=== PATIENT | female | born 1980 | race Caucasian/White ===

== ENCOUNTER → 2019-08-02 | Outpatient (CLI) | payer OTHER ==
--- NOTE | 2019-08-02 15:39 | REP ---
CHEST X RAY TWO VIEWS. HISTORY: Dilated cardiomyopathy. No comparison chest x-ray. FINDINGS: The lungs are symmetrically aerated and clear. The pleural angles are sharp. Pulmonary vasculature is not increased. The heart is felt to be mildly enlarged. Cardiothoracic ratio measures 52.2%. No bony abnormality is seen. No infiltrate is seen. IMPRESSION: Mild cardiomegaly. Otherwise no acute disease. Electronically Signed by Higinio Bernstein MD 08/02/2019 05:43 P
--- NOTE | 2019-08-02 15:49 | REP ---
REASON: Pain after trauma. There is no definite plain radiographic evidence of an acute fracture, however, subtle coccygeal fractures cannot be excluded by plain radiography. If clinically relevant consider CT. Electronically Signed by Jim Augustine DO 08/02/2019 04:00 P
[2019-08-02 16:13] LABS: BASO % 0.2 % (0.0-1.0); EOS # 0.2 10^3/uL (0.0-0.5); EOS % 1.9 % (0.0-3.0); HEMATOCRIT 40.4 % (36.0-47.0); HEMOGLOBIN 12.9 g/dl (12.0-15.5); LYMPH # 2.4 10^3/uL (1.5-5.0); LYMPH % 27.8 % (24.0-44.0); MEAN CORPUSCULAR HEMOGLOBIN 28.2 pg (27.0-33.0); MEAN CORPUSCULAR HGB CONC 31.9 g/dl (32.0-36.5); MEAN CORPUSCULAR VOLUME 88.4 fl (80.0-96.0); MONO # 0.4 10^3/uL (0.0-0.8); MONO % 4.1 % (0.0-5.0); NEUTROPHILS # 5.7 10^3/uL (1.5-8.5); NEUTROPHILS % 65.7 % (36.0-66.0); PLATELET COUNT, AUTOMATED 334 10^3/uL (150-450); RED BLOOD COUNT 4.57 10^6/uL (4.00-5.40); WHITE BLOOD COUNT 8.6 10^3/uL (4.0-10.0)
[2019-08-02 16:14] LABS: APPEARANCE, URINE HAZY (CLEAR); BACTERIA, URINE AUTO NEGATIVE (NEGATIVE); BILIRUBIN, URINE AUTO NEGATIVE (NEGATIVE); BLOOD, URINE BLOOD 2+ (NEGATIVE); COLOR, URINE YELLOW (YELLOW); GLUCOSE, URINE (UA) AUTO 1+ mg/dL (NEGATIVE); KETONE, URINE AUTO NEGATIVE (NEGATIVE); LEUKOCYTE ESTERASE, URINE AUTO NEGATIVE (NEGATIVE); MUCUS, URINE SMALL (NEGATIVE); NITRITE, URINE AUTO NEGATIVE (NEGATIVE); PROTEIN, URINE AUTO 2+ mg/dL (NEGATIVE); RBC, URINE AUTO 7 /HPF (0-3); SPECIFIC GRAVITY URINE AUTO 1.023 (1.002-1.035); SQUAMOUS EPITHELIAL CELL UR AU 3 /HPF (0-6); UROBILINOGEN, URINE AUTO 0.2 mg/dL (0.0-2.0); WBC, URINE AUTO 12 /HPF (0-3)
[2019-08-02 16:30] LABS: HEMOGLOBIN A1c 9.1 %
[2019-08-02 16:47] LABS: ALBUMIN 3.3 GM/DL (3.2-5.2); ALT/SGPT 67 U/L (12-78); BILIRUBIN,TOTAL 0.4 MG/DL (0.2-1.0); BLOOD UREA NITROGEN 9 MG/DL (7-18); CALCIUM LEVEL 8.8 MG/DL (8.5-10.1); CARBON DIOXIDE LEVEL 26 MEQ/L (21-32); CHLORIDE LEVEL 104 MEQ/L (98-107); CHOLESTEROL LEVEL 219 MG/DL (<200); CHOLESTEROL RISK RATIO 7.064 (<5); CPK CREATINE PHOSPHOKINASE 71 U/L (26-192); CREATININE FOR GFR 0.49 MG/DL (0.55-1.30); FREE T4 1.29 NG/DL (0.76-1.46); GLOMERULAR FILTRATION RATE > 60.0 (>60); GLUCOSE, FASTING 176 MG/DL (70-100); HDL CHOLESTEROL 31 MG/DL (>40); NON-HDL-C 188 MG/DL; NT-PRO BNP 74 PG/ML (<125); POTASSIUM SERUM 4.2 MEQ/L (3.5-5.1); SODIUM LEVEL 137 MEQ/L (136-145); TOTAL PROTEIN 7.9 GM/DL (6.4-8.2); TRIGLYCERIDES LEVEL 434 MG/DL (<150)
== END ==
LOC: M LRY 13:34
PROVIDERS: ATTEND Internal Medicine
DX: I42.0 Dilated cardiomyopathy (principal)

== ENCOUNTER → 2019-08-15 | Outpatient (CLI) | payer OTHER ==
--- NOTE | 2019-08-15 17:38 | REP ---
CT study of the sacrum and coccyx without contrast: History: Pain after fall. Injury to the sacrum and coccyx region. Muscle strain. Comparison radiographs August 02, 2019. Technique: Helical scanning is acquired. 4 mm axial images are generated. Coronal and sagittal MPR images are generated and reviewed. CT findings: The sacrum appears intact on sagittal, axial and coronal images. No sacral fracture is seen. L5 vertebral body appears intact. SI joints are normally aligned. The visualized portions of the iliac bones appear intact. There is however evidence of a subtle nondisplaced fracture of the first coccygeal segment with slight associated swelling. The second and third coccygeal segments appear to be intact although they may be displaced slightly posteriorly. There is no other evidence of fracture. No uterine or ovarian abnormality is seen. Urinary bladder appears intact. Impression: Subtle nondisplaced fracture of the first coccygeal segment with slight soft tissue swelling. No sacral fracture seen. Electronically Signed by Higinio Bernstein MD 08/15/2019 07:16 P
== END ==
LOC: M RAD 14:18
PROVIDERS: ATTEND Internal Medicine
DX: M54.5 Low back pain (principal); Z91.81 History of falling

== ENCOUNTER 2019-09-02 17:49 | Emergency (ER) | payer OTHER ==
[~2019-09-02] VITALS: Ht 175.3 cm; Wt 118.2 kg
[2019-09-02 19:23] LABS: BASO % 0.3 % (0.0-1.0); EOS # 0.2 10^3/uL (0.0-0.5); EOS % 1.8 % (0.0-3.0); HEMATOCRIT 40.9 % (36.0-47.0); HEMOGLOBIN 13.5 g/dl (12.0-15.5); LYMPH # 2.8 10^3/uL (1.5-5.0); LYMPH % 30.6 % (24.0-44.0); MEAN CORPUSCULAR HEMOGLOBIN 28.7 pg (27.0-33.0); MONO # 0.6 10^3/uL (0.0-0.8); MONO % 6.5 % (0.0-5.0); NEUTROPHILS # 5.5 10^3/uL (1.5-8.5); NEUTROPHILS % 60.4 % (36.0-66.0); PLATELET COUNT, AUTOMATED 334 10^3/uL (150-450); WHITE BLOOD COUNT 9.1 10^3/uL (4.0-10.0)
[2019-09-02 19:34] LABS: INR 1.04; PROTHROMBIN TIME 13.3 SECONDS (11.8-14.0)
[2019-09-02 19:35] LABS: PARTIAL THROMBOPLASTIN TIME 29.2 SECONDS (25.0-38.4)
[2019-09-02] MEDS ORDERED: METOPROLOL TART 25 MG TABLET PO ONE (19:45)
[2019-09-02 19:54] VITALS: BP 118/74
[2019-09-02 19:56] LABS: ALBUMIN 3.3 GM/DL (3.2-5.2); ALT/SGPT 63 U/L (12-78); BILIRUBIN,DIRECT < 0.1 MG/DL (0.0-0.2); BILIRUBIN,TOTAL 0.2 MG/DL (0.2-1.0); BLOOD UREA NITROGEN 10 MG/DL (7-18); CALCIUM LEVEL 8.6 MG/DL (8.5-10.1); CARBON DIOXIDE LEVEL 28 MEQ/L (21-32); CHLORIDE LEVEL 101 MEQ/L (98-107); CK-MB VALUE MASS 1.1 NG/ML (<3.6); CPK CREATINE PHOSPHOKINASE 74 U/L (26-192); CREATININE FOR GFR 0.65 MG/DL (0.55-1.30); FREE T4 1.39 NG/DL (0.76-1.46); GLOMERULAR FILTRATION RATE > 60.0 (>60); GLUCOSE, FASTING 206 MG/DL (70-100); LIPASE 394 U/L (73-393); MB/CK RELATIVE INDEX 1.49 (< OR =4); POTASSIUM SERUM 3.9 MEQ/L (3.5-5.1); SODIUM LEVEL 136 MEQ/L (136-145); TOTAL PROTEIN 7.7 GM/DL (6.4-8.2); TROPONIN I < 0.02 NG/ML (< 0.10)
[2019-09-02 21:45] VITALS: BP 147/68
--- NOTE | 2019-09-02 22:26 | ECGEPIP ---
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
--- NOTE | 2019-09-03 01:57 | REP ---
REASON FOR EXAM: Chest pain. COMPARISON: 08/02/2019 The technique utilized in obtaining the radiograph has magnified the cardiac silhouette and accentuated the interstitial markings. The cardiac silhouette is magnified by technique. There is cardiomegaly. The lung quintanilla are clear, and the pleural angles are sharp. The osseous structures are within normal limits. IMPRESSION: No significant change from the prior exam other than technique. There is cardiomegaly but no evidence of acute cardiopulmonary disease. Electronically Signed by Jim Augustine DO 09/03/2019 08:00 A
== END 2019-09-02 22:11 | disposition home or self-care (01) ==
LOC: M ED 17:49
DX: I48.20 Chronic atrial fibrillation, unspecified (principal); Z79.01 Long term (current) use of anticoagulants; Z88.1 Allergy status to other antibiotic agents

== ENCOUNTER → 2019-09-02 | Outpatient (CLI) | payer OTHER ==
--- NOTE | 2019-09-03 07:09 | ECGEPIP ---
[facility] Test Date: 2019-09-02 Pat Name: COLEEN SINGH Department: Room: - Gender: Female Take Out Waiter: SYLVIA : 1980 Requested By: Chandra Reason Order Number: [id number] Reading MD: Orlanod Gonzales Measurements Intervals [place] Rate: 81 P: [place]: 0 QRS: -45 QRSD: 169 T: 70 QT: 403 QTc: 470 Interpretive Statements Atrial fibrillation with controlled ventricular response Left bundle branch block Comparison tracing not on file Electronically Signed on 09-03-2019 7:09:14 EDT by Orlando Gonzales
== END ==
LOC: M EKG 17:10
PROVIDERS: ATTEND Internal Medicine
DX: I42.0 Dilated cardiomyopathy (principal)

== ENCOUNTER → 2019-09-27 | Outpatient (CLI) | payer OTHER ==
--- NOTE | 2019-09-30 10:48 | ECHO ---
DATE OF PROCEDURE: 09/27/2019 REFERRING PHYSICIAN: Dr. Artis Reason. REASON FOR STUDY: Dilated cardiomyopathy. 2D MEASUREMENTS: IVS - 1.2 cm LV - 5.0 cm LVPW - 1.3 cm LA - 4.4 cm Aorta - 2.7 cm IVC - 1.5 cm DOPPLER MEASUREMENT: Peak velocity across the aortic valve - 2.1 meters per second Peak velocity across the LVOT - 1.4 meters per second Peak gradient across the aortic valve - 18 mmHg Mean gradient across the aortic valve - 11 mmHg Mitral E - 1.27, mitral A - 1.2 with a ratio of 1.0 Maximum tricuspid valve velocity 2.2 meters per second 2D COMMENTS: 1. Normal left ventricular size with probably mild increase of left ventricular wall thickness and low normal global left ventricular systolic function. Estimated left ventricular systolic ejection fraction is 50-55%. 2. Mildly dilated left atrium. The right atrium and the right ventricle in limited views appeared to be borderline enlarged. 3. The atrial septum appeared to be normal without evidence of defect or shunt. 4. Normal aortic root. 5. No pericardial effusion seen. 6. Normal mitral valve. Mildly calcified mitral annulus with normal anterior mitral valve leaflet motion. Normal tricuspid valve. The pulmonic valve and proximal pulmonary artery branches were not well visualized. 7. The inferior vena cava was normal in size, central venous pressure is most likely normal. DOPPLER: It detects mild mitral regurgitation, and trace tricuspid regurgitation. The calculated pulmonary artery systolic pressure was normal. Abnormal relaxation pattern was noted across the mitral valve annulus consistent with probably features of left ventricular diastolic dysfunction, may be grade 2. IMPRESSION: 1. Low normal global left ventricular systolic function with probably mild concentric left ventricular hypertrophy. There are some features of left ventricular diastolic dysfunction manifested by abnormal relaxation. 2. Possible mild aortic stenosis. No aortic regurgitation detected. A bicuspid aortic valve was not ruled out. 3. Mitral annulus calcification with mild mitral regurgitation and mildly enlarged left atrium. 4. Trace tricuspid regurgitation with a normal calculated pulmonary artery systolic pressure. 5. Left ventricular systolic function classification function by Lundberg's was calculated at 46%, mildly depressed. MTDD
== END ==
LOC: M CARPUL 12:05
PROVIDERS: ATTEND Internal Medicine
DX: I42.0 Dilated cardiomyopathy (principal)

== ENCOUNTER → 2020-02-25 | Outpatient (CLI) | payer OTHER ==
[2020-02-25 10:56] LABS: BASO % 0.3 % (0.0-1.0); EOS # 0.3 10^3/uL (0.0-0.5); EOS % 2.6 % (0.0-3.0); HEMATOCRIT 39.2 % (36.0-47.0); HEMOGLOBIN 12.5 g/dl (12.0-15.5); LYMPH # 2.5 10^3/uL (1.5-5.0); LYMPH % 22.7 % (24.0-44.0); MEAN CORPUSCULAR HEMOGLOBIN 29.2 pg (27.0-33.0); MEAN CORPUSCULAR HGB CONC 31.9 g/dl (32.0-36.5); MEAN CORPUSCULAR VOLUME 91.6 fl (80.0-96.0); MONO # 0.5 10^3/uL (0.0-0.8); MONO % 4.3 % (0.0-5.0); NEUTROPHILS # 7.7 10^3/uL (1.5-8.5); NEUTROPHILS % 69.7 % (36.0-66.0); PLATELET COUNT, AUTOMATED 355 10^3/uL (150-450); RED BLOOD COUNT 4.28 10^6/uL (4.00-5.40)
[2020-02-25 11:34] LABS: HEMOGLOBIN A1c 7.6 %
[2020-02-25 11:36] LABS: ALBUMIN 3.6 GM/DL (3.2-5.2); ALT/SGPT 31 U/L (12-78); BILIRUBIN,TOTAL 0.4 MG/DL (0.2-1.0); BLOOD UREA NITROGEN 12 MG/DL (7-18); CALCIUM LEVEL 9.7 MG/DL (8.5-10.1); CARBON DIOXIDE LEVEL 27 MEQ/L (21-32); CHLORIDE LEVEL 102 MEQ/L (98-107); CREATININE FOR GFR 0.62 MG/DL (0.55-1.30); FREE T4 1.28 NG/DL (0.76-1.46); GLOMERULAR FILTRATION RATE > 60.0 (>60); GLUCOSE, FASTING 170 MG/DL (70-100); POTASSIUM SERUM 4.6 MEQ/L (3.5-5.1); SODIUM LEVEL 137 MEQ/L (136-145); TOTAL PROTEIN 8.3 GM/DL (6.4-8.2)
[2020-02-26 09:07] LABS: INSULIN LEVEL 32.4 uIU/mL (2.6-24.9)
== END ==
LOC: M LAB 09:21
PROVIDERS: ATTEND Internal Medicine
DX: E11.65 Type 2 diabetes mellitus with hyperglycemia (principal)

== ENCOUNTER → 2020-02-27 | Outpatient (CLI) | payer OTHER | LOC: M LABSMTC 10:31 | PROVIDERS: ATTEND Internal Medicine Interventional Cardiology | DX: Z11.59 Encounter for screening for other viral diseases (principal) ==

== ENCOUNTER → 2020-02-27 | Outpatient (REF) | payer OTHER ==
[2020-02-27 19:24] LABS: CREATININE, URINE 66.3 MG/DL; MAU/CREAT RATIO 576.1 MCG/MG (0.0-30.0)
== END ==
LOC: M LAB REF 17:22
PROVIDERS: ATTEND Nurse Practitioner Family
DX: E11.65 Type 2 diabetes mellitus with hyperglycemia (principal)